=== PATIENT | male | born 1960 | race Caucasian/White ===

== ENCOUNTER 2021-07-01 14:32 | Emergency (ER) | payer OTHER ==
[~2021-07-01] VITALS: Ht 188 cm; Wt 90.7 kg
[~2021-07-01 14:32] MED LIST: ACETAMINOPHEN-1 EAC1 PO; AMLODIPINE BESY10 MG PO; ASPIR 8181 M1 PO; CADUET 10 MG-11 EACH PO; COZAAR 25 MG TA25 M1 PO; CYCLOBENZAPRINE5 MG PO; GLUCOPHAGE1000 MG PO; HYDROCHLOROTH12.5 M1 PO; HYDROCHLOROTHIA25 M2 PO; HYDROCODON-ACE1 EAC5 PO; INVOKANA100 MG PO; JANUVIA25 MG PO; LEVEMIR SUBQ; LIPITOR 20 MG T20 M1 PO; MEDROLDOSEPACK PO; METFORMIN HCL500 MG PO; NORCO 10-325 T1 EACH PO; PROAIR HFA8.5 GM INH; PROMETHAZINE D480 ML PO; TESSALON PERLE100 MG PO; ZPAK PO
[2021-07-01 15:30] VITALS: BP 143/108
--- NOTE | 2021-07-01 16:03 | EKG ---
[place] [address] [facility] [place] [address] ELECTROCARDIOGRAM REPORT Name: TELMA ROGERS Room #: [facility] [id number] Admission: 07/01/21 Attend Phys: Discharge: Date of : 60 Report #: [id number] [facility] ED Test Date: 2021-07-01 Test Time: 15:21:43 Pat Name: TELMA ROGERS Department: Room: Gender: M Microfilm Clerk: : 1960 Requested By: Jake Majano Order Number: [id number] MD: Sky Brar Measurements Intervals [place] Rate: 182 P: MD: QRS: 72 QRSD: 105 T: 240 QT: 245 QTc: 426 Interpretive Statements Atrial fibrillation with rapid V-rate Probable LVH with secondary repol abnrm ST depression, probably rate related No previous ECG available for comparison Electronically Signed On 07-01-2021 16:02:50 CDT by Sky Brar [email or web address] <ELECTRONICALLY SIGNED> By: Sky Brar MD, [facility] 07/01/21 1602 1521 1521 Sky Brar MD, FACC /EPI
== END 2021-07-01 15:30 | disposition left against medical advice (07) ==
LOC: ER 14:32
DX: I48.20 Chronic atrial fibrillation, unspecified (principal); Z20.822 Contact with and (suspected) exposure to COVID-19; I10 Essential (primary) hypertension; E11.9 Type 2 diabetes mellitus without complications; Z79.2 Long term (current) use of antibiotics; Z79.82 Long term (current) use of aspirin; Z79.4 Long term (current) use of insulin; Z79.899 Other long term (current) drug therapy; Z91.09 Other allergy status, other than to drugs and biological substances; Z88.8 Allergy status to other drugs, medicaments and biological substances